=== PATIENT | male | born 1960 | race American Indian/Alaskan Native ===

== ENCOUNTER 2017-03-01 11:23 | Emergency (ER) | payer SELFPAY ==
[2017-03-01 11:49] VITALS: BP 179/88
[2017-03-01 12:32] LABS: CHLORIDE,CL 98 mmol/L (101-111); SODIUM,NA 136 mmol/L (135-145)
[2017-03-01 12:36] LABS: ACETAMINOPHEN < 10
[2017-03-01] MEDS ORDERED: LORazepam 0.5 MG Tab PO ONE (12:37)
--- NOTE | 2017-03-01 13:30 | EDM.PDOC ---
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 Patient states he has had family issues and increased stress for the past 5 weeks. He states he drinks alcohol, about 750ml of hard liquor daily. He states he has not had a drink since 2029 yesterday. He smokes 1ppd. Patient denies chest pain, palpitations, sob, headaches, n/v, paresthesias, or abdominal pain. - Related Data Allergies Allergy/AdvReac Type Severity Reaction Status Date / Time iodine Allergy Anaphylactic Verified 03/01/17 11:28 Shock Home Meds: Home Meds Baclofen 100 mg PO BEDTIME 03/01/17 [History] Celecoxib [CeleBREX] 200 mg PO DAILY 03/01/17 [History] Losartan [Cozaar] 25 mg PO DAILY 03/01/17 [History] Metoprolol Succinate 25 mg PO DAILY 03/01/17 [History] Past Medical History Cardiovascular History: Reports: Hypertension Genitourinary History: Reports: Other (See Below) Other Genitourinary History: kidney surgery in the past Psychiatric History: Reports: Addiction, Anxiety - Infectious Disease History Infectious Disease History: Reports: Chicken Pox Social & Family History - Family History Family Medical History: Unobtainable - Tobacco Use Smoking Status *Q: Current Every Day Smoker Years of Tobacco use: 35 Packs/Tins Daily: 1 - Caffeine Use Caffeine Use: Reports: Coffee - Alcohol Use Days Per Week of Alcohol Use: 7 Number of Drinks Per Day: 18 Total Drinks Per Week: 126 Date of Last Drink: 02/28/17 - Recreational Drug Use Recreational Drug Use: No ED ROS GENERAL - Review of Systems Review Of Systems: ROS reveals no pertinent complaints other than HPI. ED EXAM, GENERAL - Physical Exam Exam: See Below Exam Limited By: No Limitations General Appearance: Alert, WD/WN, Mild Distress Eye Exam: Bilateral Eye: Normal Inspection, PERRL, Other (Sensitive to light) Ears: Normal External Exam, Hearing Grossly Normal Ear Exam: Bilateral Ear: Auricle Normal, Canal Normal, TM normal Nose: Normal Inspection, Normal Mucosa, No Blood Throat/Mouth: Normal Inspection, Normal Lips, Normal Teeth, Normal Gums, Normal Oropharynx, Normal Voice, No Airway Compromise Head: Atraumatic, Normocephalic Neck: Normal Inspection, Supple, Non-Tender, Full Range of Motion Respiratory/Chest: No Respiratory Distress, Lungs Clear, Normal Breath Sounds, No Accessory Muscle Use, Chest Non-Tender Cardiovascular: Normal Peripheral Pulses, Regular Rate, Rhythm, No Edema, No Gallop, No JVD, No Murmur, No Rub Peripheral Pulses: 2+: Radial (L), Radial (R) GI/Abdominal: Normal Bowel Sounds, Soft, Non-Tender, No Organomegaly, No Distention, No Abnormal Bruit, No Mass (Male) Exam: Deferred Rectal (Males) Exam: Deferred Back Exam: Normal Inspection, Full Range of Motion Extremities: Normal Range of Motion, Other (right lateral malleolus swelling is chronic) Neurological: Alert, Oriented, CN II-XII Intact, Normal Cognition, Normal Gait, Normal Reflexes, No Motor/Sensory Deficits Psychiatric: Anxious, Other (fine tremor) Skin Exam: Warm, Dry, Intact, Normal Color, No Rash Lymphatic: No Adenopathy Course - Vital Signs Last Recorded V/S: Last Vital Signs Temp 98.1 F 03/01/17 11:48 Pulse 86 03/01/17 11:48 Resp 18 03/01/17 11:48 BP 179/88 H 03/01/17 11:48 Pulse Ox 99 03/01/17 11:48 - Orders/Labs/Meds Labs: Laboratory Tests 03/01/17 03/01/17 03/01/17 Range/Units 12:00 12:00 12:03 WBC 6.7 (5.0-10.0) 10^3/uL RBC 5.48 (4.6-6.2) 10^6/uL Hgb 16.7 (14.0-18.0) g/dL Hct 47.9 (40.0-54.0) % MCV 87.4 (80-100) fL MCH 30.5 (27.0-34.0) pg MCHC 34.9 (33.0-35.0) g/dL Plt Count 109 L (150-450) 10^3/uL Neut % (Auto) 76.0 H (42.2-75.2) % Lymph % (Auto) 12.9 L (20.5-50.1) % [place] % (Auto) 7.8 (2-8) % Eos % (Auto) 2.7 (1.0-3.0) % Baso % (Auto) 0.6 (0.0-1.0) % Add Manual Diff Yes Neutrophils % (Manual) 71 (42-75) % Band Neutrophils % 6 % Lymphocytes % (Manual) 16 L (20-50) % Monocytes % (Manual) 5 (2-8) % Eosinophils % (Manual) 2 (1-3) % Sodium (135-145) mmol/L Potassium (3.6-5.0) mmol/L Chloride (101-111) mmol/L Carbon Dioxide (21.0-31.0) mmol/L Anion Gap BUN (7-18) mg/dL Creatinine (0.6-1.3) mg/dL Est Cr Clr Drug Dosing mL/min Estimated GFR (MDRD) BUN/Creatinine Ratio Glucose (74-105) mg/dL Calcium (8.4-10.2) mg/dl Magnesium (1.8-2.5) mg/dL Total Bilirubin (0.2-1.0) mg/dL AST (10-42) IU/L ALT (10-60) IU/L Alkaline Phosphatase (42-121) IU/L Total Protein (6.7-8.2) g/dl Albumin (3.2-5.5) g/dl Globulin Albumin/Globulin Ratio TSH, Ultra Sensitive (0.45-5.33) uIu/mL Urine Color Dark yellow (YELLOW) Urine Appearance Slightly cloudy (CLEAR) Urine pH 6.0 (5.0-9.0) Ur Specific [place] 1.020 (1.005-1.030) Urine Protein 30 H (NEGATIVE) Urine Glucose (UA) Negative (NEGATIVE) Urine Ketones 15 H (NEGATIVE) Urine Occult Blood Trace-lysed H (NEGATIVE) Urine Nitrite Negative (NEGATIVE) Urine Bilirubin Small H (NEGATIVE) Urine Urobilinogen 0.2 (0.2-1.0) mg/dL Ur Leukocyte Esterase Negative (NEGATIVE) Urine RBC 5-10 H /HPF Urine WBC 0-5 (0-5/HPF) /HPF Ur Epithelial Cells Few /HPF Urine Mucus Moderate H /LPF Salicylates Urine Opiates Screen Negative (NEGATIVE) Ur Oxycodone Screen Negative (NEGATIVE) Urine Methadone Screen Negative (NEGATIVE) Acetaminophen Ur Barbiturates Screen Negative (NEGATIVE) U Tricyclic Antidepress Negative (NEGATIVE) Ur Phencyclidine Scrn Negative (NEGATIVE) Ur Amphetamine Screen Negative (NEGATIVE) U Methamphetamines Scrn Negative (NEGATIVE) Urine MDMA Screen Negative (NEGATIVE) U Benzodiazepines Scrn Negative (NEGATIVE) Urine Cocaine Screen Negative (NEGATIVE) U Marijuana (THC) Screen Positive H (NEGATIVE) Ethyl Alcohol mg/dL 03/01/17 03/01/17 Range/Units 12:03 12:03 WBC (5.0-10.0) 10^3/uL RBC (4.6-6.2) 10^6/uL Hgb (14.0-18.0) g/dL Hct (40.0-54.0) % MCV (80-100) fL MCH (27.0-34.0) pg MCHC (33.0-35.0) g/dL Plt Count (150-450) 10^3/uL Neut % (Auto) (42.2-75.2) % Lymph % (Auto) (20.5-50.1) % [place] % (Auto) (2-8) % Eos % (Auto) (1.0-3.0) % Baso % (Auto) (0.0-1.0) % Add Manual Diff Neutrophils % (Manual) (42-75) % Band Neutrophils % % Lymphocytes % (Manual) (20-50) % Monocytes % (Manual) (2-8) % Eosinophils % (Manual) (1-3) % Sodium 136 (135-145) mmol/L Potassium 3.4 L (3.6-5.0) mmol/L Chloride 98 L (101-111) mmol/L Carbon Dioxide 26.0 (21.0-31.0) mmol/L Anion Gap 15.4 BUN 16 (7-18) mg/dL Creatinine 0.6 (0.6-1.3) mg/dL Est Cr Clr Drug Dosing 141.94 mL/min Estimated GFR (MDRD) > 60 BUN/Creatinine Ratio 26.66 Glucose 97 (74-105) mg/dL Calcium 9.5 (8.4-10.2) mg/dl Magnesium 1.8 (1.8-2.5) mg/dL Total Bilirubin 1.1 H (0.2-1.0) mg/dL AST 69 H (10-42) IU/L ALT 59 (10-60) IU/L Alkaline Phosphatase 85 (42-121) IU/L Total Protein 7.6 (6.7-8.2) g/dl Albumin 4.3 (3.2-5.5) g/dl Globulin 3.3 Albumin/Globulin Ratio 1.30 TSH, Ultra Sensitive 0.46 (0.45-5.33) uIu/mL Urine Color (YELLOW) Urine Appearance (CLEAR) Urine pH (5.0-9.0) Ur Specific [place] (1.005-1.030) Urine Protein (NEGATIVE) Urine Glucose (UA) (NEGATIVE) Urine Ketones (NEGATIVE) Urine Occult Blood (NEGATIVE) Urine Nitrite (NEGATIVE) Urine Bilirubin (NEGATIVE) Urine Urobilinogen (0.2-1.0) mg/dL Ur Leukocyte Esterase (NEGATIVE) Urine RBC /HPF Urine WBC (0-5/HPF) /HPF Ur Epithelial Cells /HPF Urine Mucus /LPF Salicylates < 4 Urine Opiates Screen (NEGATIVE) Ur Oxycodone Screen (NEGATIVE) Urine Methadone Screen (NEGATIVE) Acetaminophen < 10 Ur Barbiturates Screen (NEGATIVE) U Tricyclic Antidepress (NEGATIVE) Ur Phencyclidine Scrn (NEGATIVE) Ur Amphetamine Screen (NEGATIVE) U Methamphetamines Scrn (NEGATIVE) Urine MDMA Screen (NEGATIVE) U Benzodiazepines Scrn (NEGATIVE) Urine Cocaine Screen (NEGATIVE) U Marijuana (THC) Screen (NEGATIVE) Ethyl Alcohol < 5 mg/dL Meds: Medications Discontinued Medications Generic Name Dose Route Start Last Admin Trade Name Sachin PRN Reason Stop Dose Admin Lorazepam 0.5 mg 03/01/17 12:37 03/01/17 13:09 Ativan PO 03/01/17 12:38 0.5 mg ONETIME ONE Administration - Re-Assessments/Exams Free Text/Narrative Re-Assessment/Exam: 03/01/17 13:29 At the time of assessment patient was medically stable. Departure - Departure Time of Disposition: 13:27 Disposition: DC/Tfer to Other 70 Condition: Fair Clinical Impression: Encounter for medical clearance for patient hold, Alcohol abuse - Discharge Information Instructions: Alcohol Use Disorder Forms: ED Department Discharge Additional Instructions: Lorazepam 0.5mg orally every 4-6 hours as needed for anxiety.
== END 2017-03-01 13:37 | disposition other institution (70) ==
LOC: DL.ED 11:23
DX: Z02.89 Encounter for other administrative examinations (principal); F10.10 Alcohol abuse, uncomplicated; Y90.0 Blood alcohol level of less than 20 mg/100 ml; F17.210 Nicotine dependence, cigarettes, uncomplicated; I10 Essential (primary) hypertension; Z79.899 Other long term (current) drug therapy; Z88.8 Allergy status to other drugs, medicaments and biological substances
CPT/HCPCS: 36415; 80053; 80305; 81001; 83735; 84443; 85025; 99284; A9270; G0480

== ENCOUNTER 2021-11-28 22:13 | Emergency (ER) | payer MEDICARE, MEDICAID ==
[2021-11-28 23:41] LABS: ANION GAP 9.2 mEq/L (7-13); CHLORIDE,CL 102 mmol/L (98-107); SODIUM,NA 138 mmol/L (136-145)
[2021-11-28 23:49] LABS: ESTIMATED GFR 92 mL/min (>=60)
[2021-11-29 02:13] VITALS: BP 127/72; PULSE 84
== END 2021-11-29 02:10 | disposition home or self-care (01) ==
LOC: DL.ED 22:13
DX: R51.9 Headache, unspecified (principal); S09.90XS Unspecified injury of head, sequela; R44.1 Visual hallucinations; M50.322 Other cervical disc degeneration at C5-C6 level; I10 Essential (primary) hypertension; F17.210 Nicotine dependence, cigarettes, uncomplicated; Z91.041 Radiographic dye allergy status; Z79.899 Other long term (current) drug therapy
CPT/HCPCS: 36415; 70450; 72125; 80053; 80307; 83735; 85025; 99284-25